=== PATIENT | male | born 1995 | race African-American/Black ===

== ENCOUNTER 2018-08-01 09:26 | Emergency (ER) | payer BC ==
[~2018-08-01] VITALS: Ht 180.3 cm; Wt 94.3 kg
[2018-08-01 09:33] VITALS: BP 129/74; Ht 180.3 cm; Wt 94.3 kg
== END 2018-08-01 10:16 | disposition home or self-care (01) ==
LOC: ED 09:26
DX: M54.42 Lumbago with sciatica, left side (principal)

== ENCOUNTER 2018-09-30 01:38 | Emergency (ER) | payer BC ==
[~2018-09-30] VITALS: Ht 180.3 cm; Wt 98.0 kg
[2018-09-30 01:41] VITALS: Ht 180.3 cm; Wt 98.0 kg
[2018-09-30 02:28] LABS: CALCIUM 9.1 mg/dL (8.5-10.1); CARBON DIOXIDE 30.6 mmol/L (21-32); CHLORIDE SERUM 105 mmol/L (98-107); CREATININE SERUM 1.1 mg/dL (0.7-1.3); GFR1 > 60 mL/min; GLUCOSE SERUM 101 mg/dL (74-106); POTASSIUM SERUM 3.6 mmol/L (3.5-5.1); SODIUM SERUM 143 mmol/L (136-145)
[2018-09-30 02:31] LABS: BASOPHIL % 0.3 % (0-2); PLATELET COUNT 250 x10^3mcL (130-400); RED CELL DISTRIBUTION WIDTH 13.1 % (11.5-14.5)
[2018-09-30 02:37] LABS: ALBUMIN 4.3 g/dL (3.4-5.0); ALKALINE PHOSPHATASE 91 U/L (46-116); ALT/SGPT 52 U/L (16-63); AST/SGOT 30 U/L (15-37); BILIRUBIN TOTAL 0.31 mg/dL (0.20-1.00)
[2018-09-30 02:38] LABS: TOTAL PROTEIN, SERUM 8.4 g/dL (6.4-8.2)
[2018-09-30 04:11] VITALS: BP 119/70
== END 2018-09-30 04:14 | disposition home or self-care (01) ==
LOC: ED 01:38
PROVIDERS: Emergency Medicine
DX: S30.1XXA Contusion of abdominal wall, initial encounter (principal); S20.211A Contusion of right front wall of thorax, initial encounter; V49.49XA Driver injured in collision with other motor vehicles in traffic accident, initial encounter; Y93.I9 Activity, other involving external motion; Y92.413 State road as the place of occurrence of the external cause; Y99.8 Other external cause status
CPT/HCPCS: J2270; J2405; Q9967